=== PATIENT | female | born 2005 | race African-American/Black ===

== ENCOUNTER 2023-06-23 07:58 | Emergency (ER) | payer SELFPAY ==
[~2023-06-23] VITALS: Ht 167.6 cm; Wt 53.0 kg
[2023-06-23 08:02] VITALS: BP 113/71; PULSE 106; RESP 16; TEMP 98.3; O2SAT 99
[2023-06-23] MEDS ORDERED: ONDA4TAB11 PO (08:32)
[2023-06-23] MEDS ORDERED: P50 MT (08:32)
[2023-06-23] MEDS ORDERED: AZIT250T12 MT (08:32)
== END 2023-06-23 08:40 | disposition home or self-care (01) ==
LOC: ER 08:28
DX: J06.9 Acute upper respiratory infection, unspecified (principal); R11.2 Nausea with vomiting, unspecified
CPT/HCPCS: 81025; 99283